=== PATIENT | female | born 1990 | race Caucasian/White ===

== ENCOUNTER 2025-01-23 18:39 | Emergency (ER) | payer MEDICAID, OTHER ==
[~2025-01-23] VITALS: Ht 162.6 cm; Wt 67.0 kg
[2025-01-23 19:24] VITALS: O2SAT 99
[2025-01-23] MEDS: KETOROLAC 30MG/ML VIAL IM ONE (23:22)
[2025-01-24] MEDS ORDERED: IBUP-1455 MT (00:04)
[2025-01-24] MEDS ORDERED: AMOX-494 MT (00:04)
[2025-01-24 00:49] VITALS: BP 97/63; PULSE 63; RESP 16; TEMP 37.5; O2SAT 99
[2025-01-24 02:23] LABS: INFLUENZA TYPE A Presumptive Negative (Pres. Neg.)
[2025-01-24 02:24] LABS: INFLUENZA TYPE B Presumptive Negative (Pres. Neg.); RESPIRATORY SYNCYTIAL VIRUS Not Detected (Not Detectd)
== END 2025-01-24 00:49 | disposition home or self-care (01) ==
LOC: ER 18:39
DX: J02.9 Acute pharyngitis, unspecified (principal); Z20.822 Contact with and (suspected) exposure to COVID-19; Z79.899 Other long term (current) drug therapy
CPT/HCPCS: 81025; 87430; 87420; 87804 ×2; 96372; 99283; 87426; J1885; Z7610